=== PATIENT | female | born 1945 | race Caucasian/White ===

== ENCOUNTER 2023-06-07 17:13 | Emergency (ER) | payer SELFPAY ==
[~2023-06-07] VITALS: Ht 142.2 cm; Wt 60.0 kg
[2023-06-07 17:31] VITALS: TEMP 98.4
[2023-06-07] MEDS ORDERED: PROPARACAINE HCL 0.5% 15 ML OPHTHALMIC SOLUTION OU ONE (18:15)
[2023-06-07] MEDS ORDERED: FLUORESCEIN SODIUM 1 MG STRIP OU ONE (18:15)
[2023-06-07] MEDS ORDERED: ERYTHROMYCIN 0.5% 3.5 GM TUBE OPHTHALMIC OINTMENT OU ONE (18:45)
[2023-06-07 20:00] VITALS: BP 144/80; PULSE 67; RESP 16
== END 2023-06-07 20:02 | disposition home or self-care (01) ==
LOC: EMS 17:14
DX: H10.9 Unspecified conjunctivitis (principal); H26.9 Unspecified cataract; I10 Essential (primary) hypertension; Z85.3 Personal history of malignant neoplasm of breast
CPT/HCPCS: 99284; J9035; Z7502; Z7610

== ENCOUNTER 2023-08-25 05:37 | Day surgery (SDC) | payer OTHER ==
[~2023-08-25] VITALS: Ht 147.3 cm; Wt 47.7 kg
[~2023-08-25 05:37] MED LIST: KETOROLAC TROMETHAMINE 0.5% 5 ML OPHTHALMIC SOLUTION ONE; MOXIFLOXACIN HCL 0.5% 3 ML OPHTHALMIC SOLUTION ONE; PHENYLEPHRINE HCL 2.5% 2 ML OPHTHALMIC SOLUTION ONE; RINGERS SOLUTION,LACTATED 500 ML IV ONE; TROPICAMIDE 1% 2 ML OPHTHALMIC SOLUTION ONE
[2023-08-25] MEDS ORDERED: LIDOCAINE/PF 1% 2 ML VIAL IM ONE (05:38)
[2023-08-25] MEDS ORDERED: DEXAMETHASONE SOD PHOS 4 MG/ML VIAL IVP ONE (05:38)
[2023-08-25] MEDS ORDERED: MIDAZOLAM HCL 2 MG/2 ML VIAL IVP ONE (05:38)
[2023-08-25] MEDS ORDERED: LIDOCAINE/PF 2% 5 ML SYRINGE IVP ONE (05:38)
[2023-08-25] MEDS ORDERED: HYALURONATE SOD 8.5MG/0.85ML 10 MG/ML SYRINGE IO ONE (05:38)
[2023-08-25] MEDS ORDERED: BALANCED SALT 15 ML OPHTHALMIC IRRIG.SOLN IO ONE (05:38)
[2023-08-25] MEDS ORDERED: PROPOFOL 1% ISO-OSM 1000 MG/100 ML BOTTLE IV ONE (05:38)
[2023-08-25] MEDS ORDERED: HYALURONATE SOD/CHONDROITIN SOD 0.5 ML VIAL IO ONE (05:38)
[2023-08-25] MEDS ORDERED: TETRACAINE HCL/PF 0.5% 4 ML OPHTHALMIC SOLUTION OD ONE (05:38)
[2023-08-25] MEDS ORDERED: CHONDR SULF A SOD/HYALURONATE 1.05 ML KIT IO ONE (05:38)
[2023-08-25] MEDS: TROPICAMIDE 1% 2 ML OPHTHALMIC SOLUTION OD SCH (06:18)
[2023-08-25] MEDS: KETOROLAC TROMETHAMINE 0.5% 5 ML OPHTHALMIC SOLUTION OD SCH (06:18)
[2023-08-25] MEDS: PHENYLEPHRINE HCL 2.5% 2 ML OPHTHALMIC SOLUTION OD SCH (06:18)
[2023-08-25] MEDS: MOXIFLOXACIN HCL 0.5% 3 ML OPHTHALMIC SOLUTION OD SCH (06:19)
[2023-08-25] MEDS: RINGERS SOLUTION,LACTATED 500 ML IV ONE (06:20)
[2023-08-25] MEDS ORDERED: POVIDONE-IODINE 5% 30 ML OPHTHALMIC SOLUTION ONE (06:38)
[2023-08-25] MEDS ORDERED: RINGERS SOLUTION,LACTATED 1,000 ML IV ONE (08:19)
[2023-08-25] MEDS: BALANCED SALT 15 ML OPHTHALMIC IRRIG.SOLN ONE (13:55)
[2023-08-25] MEDS: EPINEPHrine 1:1,000 [1 MG/ML] VIAL ONE (13:57)
[2023-08-25] MEDS: LIDOCAINE/PF 1% 2 ML VIAL ONE (13:59)
[2023-08-25] MEDS: TETRACAINE HCL/PF 0.5% 4 ML OPHTHALMIC SOLUTION ONE (14:01)
== END 2023-08-25 09:25 | disposition home or self-care (01) ==
LOC: SURGERY 05:37
PROVIDERS: ATTEND Ophthalmology
DX: H25.811 Combined forms of age-related cataract, right eye (principal); H21.531 Iridodialysis, right eye; I10 Essential (primary) hypertension; J45.909 Unspecified asthma, uncomplicated; Z98.890 Other specified postprocedural states
CPT/HCPCS: 66984; 93005; J1100; J0171; J3490 ×2; J2250; J2704; Q9967; J7120 ×2

== ENCOUNTER 2024-01-04 08:22 | Emergency (ER) | payer OTHER ==
[~2024-01-04] VITALS: Ht 152.4 cm; Wt 59.1 kg
[~2024-01-04 08:22] MED LIST changes: +ACID1TAB13 PO; +CEFD300C18 PO; +DOXY-354 PO; -KETOROLAC TROMETHAMINE 0.5% 5 ML OPHTHALMIC SOLUTION ONE; -MOXIFLOXACIN HCL 0.5% 3 ML OPHTHALMIC SOLUTION ONE; -PHENYLEPHRINE HCL 2.5% 2 ML OPHTHALMIC SOLUTION ONE; -RINGERS SOLUTION,LACTATED 500 ML IV ONE; -TROPICAMIDE 1% 2 ML OPHTHALMIC SOLUTION ONE
[2024-01-04 08:26] VITALS: TEMP 98
[2024-01-04 09:34] LABS: BASOPHILS % (AUTO) 0.4 % (0.0-2.0); EOSINOPHILS % (AUTO) 8.9 % (1.0-6.0); HEMATOCRIT 41.1 % (36-46); HEMOGLOBIN 13.6 g/dL (12.0-16.0); LYMPHOCYTES # (AUTO) 1.5 K/uL (1.0-4.8); LYMPHOCYTES % (AUTO) 15.9 % (22.0-44.0); MEAN CORPUSCULAR HEMOGLOBIN 29.6 pg (26.0-34.0); MEAN CORPUSCULAR VOLUME 90 fL (80-100); MONOCYTES # (AUTO) 0.6 K/uL (0.1-1.0); NEUTROPHILS # (AUTO) 6.2 K/uL (1.8-7.7); NEUTROPHILS % (AUTO) 67.8 % (40.0-70.0); PLATELET COUNT (AUTO) 185 K/uL (150-450); RED BLOOD CELL COUNT(AUTO) 4.59 MIL/uL (4.00-5.20); RED CELL DISTRIBUTION WIDTH 13.4 % (11.5-14.5); WHITE BLOOD COUNT (AUTO) 9.2 K/uL (4.5-11.0)
[2024-01-04 09:46] LABS: CALCIUM, TOTAL 8.2 mg/dL (8.8-10.5); CREATININE 1.45 mg/dL (0.60-1.30); POTASSIUM 3.7 mmol/L (3.5-5.1)
[2024-01-04] MEDS: LORazepam 1 MG TABLET PO ONE (09:50)
[2024-01-04] MEDS: ONDANSETRON HCL 4 MG TABLET PO ONE (09:50)
[2024-01-04] MEDS: OxyCODONE HCL/ACETAMINOPHEN 5-325 MG TABLET PO ONE (09:50)
[2024-01-04 09:53] LABS: TROPONIN I-HIGH SENSITIVITY 4 ng/L (<51)
[2024-01-04] MEDS ORDERED: IBUP-1492 PO (11:00)
[2024-01-04] MEDS ORDERED: PERCT PO (11:00)
[2024-01-04 11:15] VITALS: BP 150/84; PULSE 70; RESP 18
== END 2024-01-04 12:08 | disposition home or self-care (01) ==
LOC: EMS 08:22
DX: S42.211A Unspecified displaced fracture of surgical neck of right humerus, initial encounter for closed fracture (principal); I10 Essential (primary) hypertension; Z98.890 Other specified postprocedural states; W06.XXXA Fall from bed, initial encounter; Y93.89 Activity, other specified; Y92.89 Other specified places as the place of occurrence of the external cause; Y99.8 Other external cause status
CPT/HCPCS: 99285; 71045; 80048; 84484; 85025; 36415; 73030; 73060; 93005; Q0162

== ENCOUNTER 2024-05-18 09:54 | Emergency (ER) | payer OTHER ==
[~2024-05-18] VITALS: Ht 154.9 cm; Wt 54.5 kg
[~2024-05-18 09:54] MED LIST changes: -ACID1TAB13 PO; -CEFD300C18 PO; -DOXY-354 PO; +IBUP-1492 PO; +PERCT PO
[2024-05-18 09:58] VITALS: TEMP 98.6
[2024-05-18] MEDS: ACETAMINOPHEN 325 MG TABLET PO ONE (10:29)
[2024-05-18] MEDS: BENZONATATE 100 MG CAPSULE PO ONE (10:29)
[2024-05-18 10:45] LABS: COVID AG,FIA SOURCE NASAL SWAB
[2024-05-18 11:20] LABS: INFLUENZA TYPE A NEGATIVE FOR TYPE A (NEGATIVE); INFLUENZA TYPE B NEGATIVE FOR TYPE B (NEGATIVE); SARS-COV2 (COVID) ANTIGEN,FIA Negative (Negative)
[2024-05-18] MEDS ORDERED: BENZ-227 PO (12:40)
[2024-05-18 12:45] VITALS: BP 144/74; PULSE 85; RESP 16; O2SAT 99
== END 2024-05-18 13:47 | disposition home or self-care (01) ==
LOC: EMS 09:54
DX: J06.9 Acute upper respiratory infection, unspecified (principal); R06.02 Shortness of breath; M79.601 Pain in right arm; R05.9 Cough, unspecified; B97.89 Other viral agents as the cause of diseases classified elsewhere; I10 Essential (primary) hypertension; Z85.3 Personal history of malignant neoplasm of breast; Z20.822 Contact with and (suspected) exposure to COVID-19
CPT/HCPCS: 71045; 87804; 99284